=== PATIENT | male | born 1965 ===

== ENCOUNTER → 2017-06-10 | Outpatient (CLI) | payer OTHER | END | disposition home or self-care (01) | LOC: RAD 09:04 | DX: J18.0 Bronchopneumonia, unspecified organism (principal) ==

== ENCOUNTER 2017-09-11 07:10 | Outpatient (CLI) | payer OTHER | END 2017-09-11 07:19 | disposition home or self-care (01) | LOC: SONOGRAMA 07:10 | DX: I26.99 Other pulmonary embolism without acute cor pulmonale (principal); I82.401 Acute embolism and thrombosis of unspecified deep veins of right lower extremity; F10.10 Alcohol abuse, uncomplicated; Z51.81 Encounter for therapeutic drug level monitoring ==

== ENCOUNTER 2017-09-24 08:28 | Outpatient (CLI) | payer OTHER | END 2017-09-24 09:00 | disposition home or self-care (01) | LOC: NUCLEAR 08:28 | DX: I82.401 Acute embolism and thrombosis of unspecified deep veins of right lower extremity (principal) ==

== ENCOUNTER 2017-10-06 07:57 | Outpatient (CLI) | payer OTHER | END 2017-10-06 17:00 | disposition home or self-care (01) | LOC: TOM 07:57 | DX: I26.99 Other pulmonary embolism without acute cor pulmonale (principal) | CPT/HCPCS: 71275 ==

== ENCOUNTER 2018-02-02 08:15 | Outpatient (CLI) | payer OTHER | END 2018-02-02 08:23 | disposition home or self-care (01) | LOC: RAD 08:15 | DX: R05 Cough (principal) ==

== ENCOUNTER 2018-08-03 09:49 | Outpatient (CLI) | payer OTHER | END 2018-08-03 15:36 | disposition home or self-care (01) | LOC: TOM 09:49 | DX: I26.99 Other pulmonary embolism without acute cor pulmonale (principal); D68.51 Activated protein C resistance ==